=== PATIENT | male | born 1950 | race Caucasian/White ===

== ENCOUNTER → 2016-07-15 | Outpatient (CLI) | payer MEDICARE, OTHER | END | disposition home or self-care (01) | LOC: CVU 11:30 | PROVIDERS: ATTEND Internal Medicine Cardiovascular Disease | DX: I34.0 Nonrheumatic mitral (valve) insufficiency (principal); R94.31 Abnormal electrocardiogram [ECG] [EKG]; I07.1 Rheumatic tricuspid insufficiency; I37.1 Nonrheumatic pulmonary valve insufficiency; I10 Essential (primary) hypertension; E11.9 Type 2 diabetes mellitus without complications; Z86.39 Personal history of other endocrine, nutritional and metabolic disease | CPT/HCPCS: C8929 ==

== ENCOUNTER → 2016-08-26 | Outpatient (CLI) | payer MEDICARE, OTHER ==
[~2016-08-26] MED LIST: REGADENOSON 0.4 MG/5 ML SYRINGE ONE
== END | disposition home or self-care (01) ==
LOC: CFH 08:15
PROVIDERS: ATTEND Internal Medicine Cardiovascular Disease
DX: R94.31 Abnormal electrocardiogram [ECG] [EKG] (principal)
CPT/HCPCS: 78452; 93017; A9502; J2785

== ENCOUNTER 2020-07-17 08:16 | Outpatient (CLI) | payer MEDICARE, OTHER | END 2020-07-17 23:59 | disposition home or self-care (01) | LOC: CVU 08:16 | PROVIDERS: ATTEND Internal Medicine Clinical Cardiac Electrophysiology | DX: I35.8 Other nonrheumatic aortic valve disorders (principal); I49.3 Ventricular premature depolarization; I10 Essential (primary) hypertension | CPT/HCPCS: 93306 ==